=== PATIENT | male | born 1975 | race Asian ===

== ENCOUNTER 2018-11-13 20:12 | Emergency (ER) | payer MEDICAID, OTHER ==
[~2018-11-13] VITALS: Ht 165.1 cm; Wt 49.1 kg
[~2018-11-13 20:12] MED LIST: Hydrocodone Bit/Acetaminophen PO; NO HOME MEDS
[2018-11-13 20:15] VITALS: BP 135/88
[2018-11-13] MEDS ORDERED: sulfamethoxazole/trimethoprim DS (800/160mg) tablet PO ONE ×2 (21:00→21:20)
[2018-11-13] MEDS ORDERED: SULF1TAB48 PO (21:00)
--- NOTE | 2018-11-13 21:27 | NUR ---
TOTAL OF 2 TABS OF SEPTRA GIVEN. ON 2 TAB ORDER ONLY ONE TAB REMOVED FROM DRAWER CALLED [facility] AND PUT IN ORDER FOR 1 TAB.
== END 2018-11-13 21:32 | disposition home or self-care (01) ==
LOC: ER 20:13
DX: S61.002A Unspecified open wound of left thumb without damage to nail, initial encounter (principal); L02.414 Cutaneous abscess of left upper limb; F17.200 Nicotine dependence, unspecified, uncomplicated; Z71.6 Tobacco abuse counseling; F15.90 Other stimulant use, unspecified, uncomplicated; Z79.899 Other long term (current) drug therapy; W26.0XXA Contact with knife, initial encounter; Y93.89 Activity, other specified; Y92.89 Other specified places as the place of occurrence of the external cause; Y99.8 Other external cause status
CPT/HCPCS: 99283